=== PATIENT | female | born 1975 | race Caucasian/White ===

== ENCOUNTER 2017-09-18 12:21 | Emergency (ER) | payer BC, OTHER ==
[~2017-09-18] VITALS: Ht 167.6 cm; Wt 85.6 kg
[~2017-09-18 12:21] MED LIST: CNC/36 PO; DSY100 PO; RTL20 PO
[2017-09-18 12:24] VITALS: TEMP 37; Ht 167.6 cm; Wt 85.6 kg
[2017-09-18 12:41] VITALS: O2SAT 95
[2017-09-18] MEDS ORDERED: ALBUTEROL HFA 8 GM INHALER INH ONE (13:00)
[2017-09-18] MEDS ORDERED: DOXYCYCLINE HYCLATE 100 MG CAP PO ONE (13:00)
--- NOTE | 2017-09-18 13:07 | DIAGNOSTIC IMAGING REPORT ---
CHEST ONE VIEW PORTABLE CLINICAL HISTORY: Shortness of breath. Cough. COMPARISON STUDY: Chest radiograph June 15, 2016. FINDINGS: Lung volumes are normal. Lungs are clear. No pneumothorax or pleural effusion is present. Cardiomediastinal silhouette is normal. Pulmonary vascularity is normal. IMPRESSION: No acute cardiopulmonary findings. Electronically signed by: Devendra Baez M.D. 09/18/2017 1:05 PM Dictated Date/Time: 09/18/2017 1:05 PM
[2017-09-18] MEDS ORDERED: VNTHFA/IN INH (14:29)
[2017-09-18] MEDS ORDERED: PRED20TA PO (14:29)
[2017-09-18] MEDS ORDERED: DOXY100C PO (14:29)
[2017-09-18 14:34] VITALS: BP 137/71; PULSE 81; O2SAT 95
--- NOTE | 2017-09-18 16:58 | EMERGENCY ROOM VISIT NOTE ---
History Report prepared by Opal: Satnam Ramos Under the Supervision of: Dr. Konstantin Guillermo M.D. First contact with patient: 12:42 Chief Complaint: RESPIRATORY PROBLEMS Stated Complaint: CAN'T BREATHE History of Present Illness The patient is a 42 year old female who presents to the Emergency Room with complaints of worsening shortness of breath beginning two weeks ago. She states that her shortness of breath worsened significantly today. She used three breathing treatments at home, but nothing improved her symptoms. The patient also complains of chest "tightness" and cough. Her cough produces a clear sputum. She was seen by her PCP just prior to arrival for similar symptoms and was referred to the ED. She had a nebulizer treatment while there which increased her oxygen saturation to 89%. The patient denies vomiting, diarrhea or fevers. Source of History: patient Onset: Two weeks ago Quality: other (shortness of breath) Timing: worsening Modifying Factors (Relieving): other (none) Associated Symptoms: + cough, + chest pain ("tightness"), No fevers, No vomiting, No diarrhea Review of Systems See HPI for pertinent positives & negatives. A total of 10 systems reviewed and were otherwise negative. Past Medical & Surgical Medical Problems: (1) Asthma (2) Bronchitis (3) Cubital tunnel syndrome on right (4) Dental caries (5) Facial cellulitis (6) Pain, dental (7) Pain, dental (8) Pain, dental (9) Pain, dental (10) Pain, dental (11) Right arm pain Surgical Problems: (1) section (2) Hysterectomy Family History Cancer Diabetes mellitus Gallbladder disease Hypertension Kidney disease Social History Smoking Status: Current Every Day Smoker Alcohol Use: none Drug Use: none Marital Status: Housing Status: lives with family Occupation Status: employed Current/Historical Medications Scheduled Albuterol Hfa (Ventolin Hfa), 3 PUFFS INH Q6H Doxycycline Hyclate (Vibramycin), 100 MG PO BID Methylphenidate (Ritalin), 20 MG PO DAILY@3PM Methylphenidate Hcl (Concerta), 36 MG PO QAM Prednisone (Prednisone), 0 PO DAILY Scheduled PRN Trazodone HCl (Trazodone HCl), 100 MG PO HS PRN for Sleep Allergies Coded Allergies: No Known Allergies (Unverified , 09/18/17) Physical Exam Vital Signs Date Time Temp Pulse Resp B/P (MAP) Pulse Ox O2 Delivery O2 Flow Rate FiO2 09/18/17 14:34 81 18 137/71 95 09/18/17 13:19 95 Room Air 09/18/17 13:14 94 Room Air 09/18/17 12:55 83 09/18/17 12:41 95 Nasal Cannula 4.0 09/18/17 12:40 84 12 134/68 93 Room Air 09/18/17 12:35 91 Room Air 09/18/17 12:24 37.0 80 24 120/77 91 Room Air Physical Exam GENERAL: Patient is in no acute distress. HEENT: No acute trauma, normocephalic atraumatic, mucous membranes moist, no nasal congestion, no scleral icterus. NECK: No stridor, no adenopathy, no meningismus, trachea is midline. LUNGS: Scattered wheezes bilaterally. Breath sounds fairly full. Breath sounds equal. No rhonchi. HEART: Without murmurs gallops or rubs, regular rate and rhythm. ABDOMEN: Soft, nontender, bowel sounds positive, no hernias, no peritonitis. EXTREMITIES: No cyanosis or edema, full range of motion of all the joints without pain or difficulty, no signs for acute trauma. NEUROLOGIC: Oriented x 3, no acute motor or sensory deficits, no focal weakness. SKIN: No rash, no jaundice, no diaphoresis. Medical Decision & Procedures ER Provider Diagnostic Interpretation: Radiology results as stated below per my review and radiologist interpretation: CHEST ONE VIEW PORTABLE FINDINGS: Lung volumes are normal. Lungs are clear. No pneumothorax or pleural effusion is present. Cardiomediastinal silhouette is normal. Pulmonary vascularity is normal. IMPRESSION: No acute cardiopulmonary findings. Electronically signed by: Devendra Baez M.D. 09/18/2017 1:05 PM Medications Administered Medications (Trade) Dose Ordered Sig/[place] Route Start Time Stop Time Status Last Admin Dose Admin Albuterol (Ventolin Hfa Inhaler) 3 puffs NOW ONCE INH 09/18/17 13:00 09/18/17 13:01 DC 09/18/17 13:13 3 PUFFS Prednisone (PredniSONE TAB) 60 mg NOW STAT PO 09/18/17 12:51 09/18/17 12:54 DC 09/18/17 13:12 60 MG Doxycycline Hyclate (Vibramycin Cap) 100 mg ONE ONCE PO 09/18/17 13:00 09/18/17 13:01 DC 09/18/17 13:12 100 MG ED Course 1248: The patient was evaluated in room C8. A complete history and physical exam was performed. 1251: Ordered Prednisone Tab 60 mg PO. 1300: Ordered Vibramycin Cap 100 mg PO, Ventolin Hfa Inhaler 3 puffs INH. 1415: Reevaluated the patient. Discussed results and discharge instructions: she verbalized understanding and agreement. The patient is ready for discharge. Medical Decision The patient is a 42 year old female who presents to the ED with complaints of shortness of breath. Differential diagnoses considered include pneumonia, bronchitis, CHF, sinusitis, pneumothorax, PE, and exacerbation of COPD. The patient presents to the ER with wheezing and cough. She has had symptoms for 2 weeks. She had some hypoxia earlier at her doctor's office. The patient received albuterol via [facility]. Her lungs were fairly clear on my exam. Her O2 saturation has been adequate while in the ER, she ambulated without difficulty and there was no hypoxia. A chest film was done, no pneumonia, CHF or pneumothorax noted. The patient was given oral prednisone and oral doxycycline. She is being discharged on these medications plus albuterol. If worsening, she can return. She appears to have an acute bronchitis. Antibiotics are indicated as she has been sick for 2 weeks. Medication Reconcilliation Current Medication List: was personally reviewed by me Blood Pressure Screening Patient's blood pressure: Elevated blood pressure Blood pressure disposition: Elevated BP felt to be situational Impression Primary Impression: Acute bronchitis Additional Impression: Wheezing Scribe Attestation The scribe's documentation has been prepared under my direction and personally reviewed by me in its entirety. I confirm that the note above accurately reflects all work, treatment, procedures, and medical decision making performed by me. Departure Information Dispostion Home / Self-Care Prescriptions Albuterol Hfa (VENTOLIN HFA) 200 Puffs/[id number] Mcg Aers 3 PUFFS INH Q6H, #1 INHALER Prov: Konstantin Guillermo M.D. 09/18/17 Prednisone (Prednisone) 20 Mg Tab 0 PO DAILY, #14 TAB 3 TABS DAILY FOR 2 DAYS, THEN 2 TABS DAILY FOR 2 DAYS, THEN 1 TAB DAILY FOR 2 DAYS, THEN 1/2 TAB DAILY FOR 2 DAYS. Prov: Konstantin Guillermo M.D. 09/18/17 Doxycycline Hyclate (VIBRAMYCIN) 100 Mg Cap 100 MG PO BID for 10 Days, #20 CAP Prov: Konstantin Guillermo M.D. 09/18/17 Referrals Jj Loza M.D.([facility]) (PCP) Forms HOME CARE DOCUMENTATION FORM, IMPORTANT VISIT INFORMATION, WORK / SCHOOL INSTRUCTIONS Patient Instructions My [facility] Additional Instructions doxycycline 2x per day for 10 days albuterol 3 puffs every 4 hours prednisone as directed return for worsening breathing see angela felix for a recheck this week Problem Qualifiers
== END 2017-09-18 14:34 | disposition home or self-care (01) ==
LOC: C.EDB 12:22 → C.EDC 14:34
DX: J20.9 Acute bronchitis, unspecified (principal); J45.909 Unspecified asthma, uncomplicated; F17.200 Nicotine dependence, unspecified, uncomplicated; Z86.19 Personal history of other infectious and parasitic diseases; Z90.710 Acquired absence of both cervix and uterus; Z79.899 Other long term (current) drug therapy; Z80.9 Family history of malignant neoplasm, unspecified; Z83.3 Family history of diabetes mellitus; Z83.79 Family history of other diseases of the digestive system; Z82.49 Family history of ischemic heart disease and other diseases of the circulatory system; Z84.1 Family history of disorders of kidney and ureter